=== PATIENT | male | born 1960 | race Asian ===

== ENCOUNTER → 2023-07-08 06:20 | Day surgery (SDC) | payer BC, SELFPAY ==
[2023-07-08 07:41] LABS: Glucose - Point of Care 133 mg/dl (70-99)
== END ==
LOC: GI 06:20
PROVIDERS: ATTENDING PHYSICIAN Specialist
DX: Z12.11 Encounter for screening for malignant neoplasm of colon (principal); K63.89 Other specified diseases of intestine; K62.1 Rectal polyp; Z86.010 Personal history of colon polyps
CPT/HCPCS: 45385; 45380; 88305; 82962